=== PATIENT | female | born 1970 | race Caucasian/White ===

== ENCOUNTER 2016-08-12 13:00 | Emergency (ER) | payer OTHER ==
[~2016-08-12] VITALS: Ht 172.7 cm; Wt 72.7 kg
[~2016-08-12 13:00] MED LIST: CEFU500T PO; ONDA8TAB10 PO
[2016-08-12 13:04] VITALS: BP 185/103; PULSE 113; RESP 18; O2SAT 100
[2016-08-12 13:19] VITALS: BP 152/94; PULSE 106; RESP 19; O2SAT 99
--- NOTE | 2016-08-12 13:22 | ED.REPORT ---
HPI-General Illness Date of Service Aug 12, 2016 ED Provider: Dav Hill MD Pt is a 45 y/o female with a hx of hypertension who reports to the ED complaining of high blood pressure (215/138 this morning, recorded at home) and cold symptoms, onset 2 weeks. Pt has been experiencing extreme dizziness. Pt c/ o associated cough, congestion, fatigue, potential fever, SOB and headache. She has not had a flu shot this year. Pt denies blurred vision and chest pain. Pt has a friend who was recently ill and is also a health care provider. Nursing Notes Stated Complaint: HIGH BLOOD PRESSURE Chief Complaint: FLU/Cold Symptoms Nursing Notes Reviewed: Yes Allergies: Coded Allergies: cyclobenzaprine (Verified Allergy, Severe, 08/12/16) Sulfa (Sulfonamide Antibiotics) (Verified Allergy, Unknown, Rash, 08/12/16) Scheduled Cefuroxime Axetil (Ceftin) 500 Mg Tablet 500 MG PO BID Ciprofloxacin (Ciprofloxacin) 500 Mg Tablet 500 MG PO BID Ondansetron ODT (Ondansetron ODT) 8 Mg Tab.rapdis 8 MG PO QID Scheduled PRN Benzonatate (Tessalon Perle) 100 Mg Capsule 100 MG PO TID PRN PRN For Cough General Time Seen by MD: 13:14 Chief Complaint Dizziness, Flu-like illness Hx Obtained From: Patient Arrived By: Walk-in Onset Occurred: 2 days ago Symptom Duration: Since onset Severity: Current: No pain currently Severity: Maximum: No pain Recent Healthcare: No recent hospitalization Similar Sx Previous: No Past Medical History Past Medical History Ovarian Cysts Bipolar disorder Reports: Hypertension Reports: Urinary tract infection Past Surgical History cardiac ablation for SVT varicose veins Reports: Tubal ligation Smoking History Never Smoker Social History Other Social History: Good social support, Local resident Ambulatory Status Independent Review of Systems Full Review of Systems Constitutional: Reports: Chills, Fatigue, Fever Eyes: Denies: Blurred left, Blurred right Ears / Nose / Throat: Reports: Nasal congestion Respiratory: Reports: Non-productive cough, Shortness of breath Cardiovascular: Denies: Chest pain Neurologic: Reports: Headache Complete sys rev & neg: except as marked. Physical Exam Vital Signs Vital Signs Date Time Temp Pulse Resp B/P Pulse Ox O2 Delivery O2 Flow Rate FiO2 08/12/16 16:18 37.6 95 16 159/97 96 Room Air 08/12/16 15:44 37.6 95 16 159/97 96 Room Air 08/12/16 13:19 37.4 106 19 152/94 99 Room Air 08/12/16 13:04 36.8 113 18 185/103 100 Room Air Initial VS: Reviewed Neurologic: Alert, Oriented, Nonfocal Psychiatric: Mood/affect normal, Behavior normal, Normal thought content General/Constitutional: Awake, Alert, No acute distress Head / Eyes: Normocephalic, PERRL ENT: Atraumatic, Pharynx NL Mouth: Positive: Mucous membranes dry Neck: Supple, Full range of motion Respiratory / Chest: Atraumatic, Breath sounds NL, Breath sounds = bilat, No respiratory distress Cardiovascular: Heart sounds NL, No gallop, No murmurs, No rubs Heart Rate / Rhythm: Positive: Tachycardia Abdomen: Soft, Non-tender, No distention Flank / Spine / Paraspinal: Positive: Flank tender L, Flank tender R, Flank tender bilateral (diffuse tenderness ) Right Leg / Calf: Negative: Swelling present..., Tenderness present... Left Leg / Calf: Negative: Swelling present..., Tenderness present... Skin: Atraumatic, Color NL, No rash, Warm Interpretation & Diagnostics Interpretation & Diagnostics: Rapid Bedside Influenza Screen: NEGATIVE FOR INFLUENZA TYPE A AND B Bedside Urine Dip: Positive leukocytes, nitrites, and blood. Lab Results Interpretation Test 08/12/16 14:10 08/12/16 14:20 Urine Color Straw (YELLOW) Urine Appearance Hazy (CLEAR,HAZY) Urine pH 6.0 (5.0-8.0) Urine Specific Dinosaur 1.025 (1.003-1.035) Urine Protein Negativemg/dL (NEG,TRACE) Urine Glucose (UA) Negativemg/dL (NEGATIVE) Urine Ketones Negativemg/dL (NEGATIVE) Urine Occult Blood Small (NEGATIVE) Urine Nitrite Positive (NEGATIVE) Urine Bilirubin Negative (NEGATIVE) Urine Urobilinogen Normalmg/dL (NORMAL) Urine Leukocyte Esterase Trace (NEGATIVE) Urine RBC 0-2/hpf (0-2) Urine WBC 6-10/hpf (0-5) Urine Epithelial Cells Occasional/hpf (NONE-MOD) Urine Crystals None seen (NONE SEEN) Urine Bacteria Many/hpf (NONE-FEW) Urine Hyaline Casts None/lpf (NONE) Urine Granular Casts None seen (NONE SEEN) Urine Waxy Casts None seen (NONE SEEN) Urine Red Blood Cell Casts None seen (NONE SEEN) Urine White Blood Cell Casts None seen (NONE SEEN) Urine Mucus None seen (None Seen) Urine Trichomonas None seen (NONE SEEN) Urine Yeast None (NONE SEEN) Urinalysis Comment None Urine Culture Reflexed Indicated X-Ray Chest Interpretation Chest Xray Interpretation: IMPRESSION: Slight appearance of increased interstitial opacities within the bases. This could represent developing airspace disease. Recommend interval followup to document resolution, as wells reevaluation of right base nodule. Dictated by: Dayami Quiroz M.D. on 08/12/2016 at 15:19 Approved by: Dayami Quiroz M.D. on 08/12/2016 at 15:19 View: Portable Interpretation / Wet Read by: Interpret - Radiologist Re-Eval/Medical Decision Med Decision/Clinical Course Pt is a 45 y/o female with a hx of hypertension who reports to the ED complaining of high blood pressure (215/138 this morning, recorded at home) and cold symptoms, onset 2 weeks. Pt has been experiencing extreme dizziness. Pt c/ o associated cough, congestion, fatigue, potential fever, SOB and headache. She has not had a flu shot this year. Pt denies blurred vision and chest pain. Pt has a friend who was recently ill and is also a health care provider. Patient was initially borderline tachycardic with a heart rate in the low 100s though otherwise afebrile stable vital signs. Rapid Bedside Influenza Screen: NEGATIVE FOR INFLUENZA TYPE A AND B Bedside Urine Dip: Positive leukocytes, nitrites, and blood Formal urinalysis convincing for UTI, culture sent CXR: Obtained, reviewed and interpreted by myself shows no evidence of acute infiltrates, effusions or pneumothorax. Cardiac and mediastinal silhouette normal. No bony or soft tissue abnormalities. Overall presentation most consistent with flulike illness though the urinalysis raises concern for possible UTI/pyelonephritis. Patient is nontoxic appearing at this time and tolerating PO. No evidence of pneumonia or acute surgical intra-abdominal process. I do not feel that further imaging or laboratory studies are clinically indicated. After receiving IV fluids patient's tachycardia resolved. She was reassessed and reported feeling especially improved. She will be treated with a 7 day course of ciprofloxacin for presumed UTI. Follow up and return precautions were reviewed in detail and she was discharged in good condition. Source of Hx: Old records Time of Eval: 16:00 Patient Status: Condition improved Re-Evaluation/Progress Note: Discussed the results of the patient's labs, x-ray, and flu swab. Patient understands and agrees with the plan to be discharged home. Discharge instructions and follow-up discussed. All questions were addressed. Return to the ED warnings given. Counseled Regarding: Diagnosis, Lab results, Need for follow-up, When/why to return to ED Discharge & Departure Primary Impression: UTI (urinary tract infection) Urinary tract infection type: acute cystitis Hematuria presence: without hematuria Qualified Code: N30.00 - Acute cystitis without hematuria Additional Impressions: Flu-like symptoms Myalgia Disposition: Home Discharge Condition All VS Reviewed: Yes Condition: Stable Patient Instructions: Urinary Tract Infection in Women (ED) Additional Instructions: Thank you for seeking care at emergency room. It is difficult for us to make definitive diagnoses in the ED but we believe that you are experiencing a flulike illness. It appears the you also have a urinary tract infection. Our primary goal today in the ED was to evaluate you for any life-threatening conditions. Your evaluation was reassuring. You will be discharged with a prescription for antibiotics and cough medication , please take as directed. Make sure to drink plenty of fluids and you may take ibuprofen and Tylenol for pain. You should follow-up with your primary doctor in the next week. He should have your blood pressure rechecked at that time and further discuss starting blood pressure medications. You should return to the ED immediately if you develop stomach symptoms, blurry vision, headache, chest pain, fevers, vomiting, cough, shortness of breath, chest pain, lightheadedness, weakness or any other concerning signs or symptoms. Thank you for letting us partake in your care today. Referrals: [facility] Res[facility] Scribe Attestation Portion of this note were transcribed by Carli Mock and Aylin Hollingsworth. I, Dr. Hill, personally performed the history, physcial exam, and medical decision-making: I reviewed and confirmed the accuracy for the information in the transcribed note. Signed by: sravanthi Belle, 08/12/16 1600 Signed by: Sravanthi Ugalde, 08/12/20161810 Dav Hill MD Aug 12, 2016 13:22 AYLIN HOLLINGSWORTH Aug 12, 2016 14:01 Carli Mock Aug 12, 2016 14:08
[2016-08-12] MEDS ORDERED: 0.9% Sodium Chloride 1,000 ML IV ONE (13:55)
[2016-08-12] MEDS ORDERED: BENZ-12 PO (13:59)
--- NOTE | 2016-08-12 15:21 | DRSVH ---
PROCEDURE: X-RAY CHEST, TWO VIEWS ([id number]) INDICATIONS: cough TECHNIQUE: 2 views of the chest were acquired. COMPARISON: [facility], CT, ABD/PELVIS W/CON (PNL), 11/16/2006, 10:00. [facility], CT, CT ABD PELVIS W CON, 07/15/2015, 22:39. FINDINGS: Surgical changes and devices: None. Lungs and pleura: There is a slight appearance of increased coarsened interstitial opacities within t he lung bases bilaterally. In addition, there is a 9 mm somewhat discrete rounded nodular opacity in the right base. It is noted that no corresponding abnormality within this region is identified on the CT scan of 07/15/15. Mediastinum: Mediastinal contours are normal. Heart size is normal. Bones and chest wall: No suspicious bony abnormalities. Soft tissues appear unremarkable. IMPRESSION: Slight appearance of increased interstitial opacities within the bases. This could repres ent developing airspace disease. Recommend interval followup to document resolution, as wells reevalu ation of right base nodule. Dictated by: Dayami Quiroz M.D. on 08/12/2016 at 15:19 Approved by: Dayami Quiroz M.D. on 08/12/2016 at 15:19
[2016-08-12 15:37] LABS: APPEARANCE,URINE HAZY (CLEAR,HAZY); COLOR,URINE STRAW (YELLOW); OCCULT BLOOD,URINE SMALL (NEGATIVE)
[2016-08-12 15:38] LABS: UROBILINOGEN,URINE NORMAL (NORMAL)
[2016-08-12 15:44] VITALS: BP 159/97; PULSE 95; RESP 16; O2SAT 96
[2016-08-12] MEDS ORDERED: CIPR-198 PO (16:06)
[2016-08-12 16:18] VITALS: BP 159/97; PULSE 95; RESP 16; O2SAT 96
== END 2016-08-12 16:18 | disposition home or self-care (01) ==
LOC: SED 13:00
DX: N30.00 Acute cystitis without hematuria (principal); J11.1 Influenza due to unidentified influenza virus with other respiratory manifestations; B96.20 Unspecified Escherichia coli [E. coli] as the cause of diseases classified elsewhere; I10 Essential (primary) hypertension; Z88.2 Allergy status to sulfonamides; Z88.8 Allergy status to other drugs, medicaments and biological substances
CPT/HCPCS: 71020; 81000; 87077; 87086; 87088; 87186; 87804; 96360; 99285; J7030

== ENCOUNTER 2016-11-12 00:56 | Emergency (ER) | payer OTHER ==
[~2016-11-12] VITALS: Ht 172.7 cm; Wt 77.3 kg
[~2016-11-12 00:56] MED LIST changes: +BENZ-12 PO; +CIPR-198 PO
[2016-11-12 01:02] VITALS: BP 171/93; PULSE 89; RESP 16; O2SAT 98
--- NOTE | 2016-11-12 01:21 | ED.REPORT ---
HPI-Extremity Problem Lower Date of Service Nov 12, 2016 ED Provider: Carrie Griffith MD 45 y/o female presents to the ER complaining of left ankle injury, onset Wednesday when she got hit by the ball while she was playing baseball with her son. She complains of worsening pain and swelling over the past few days since the incident. The pain significantly worsened today. Patient denies, shortness of breath, cough and numbness or weakness in the left leg or ankle. The patient is able to bear weight on the left ankle, though with difficulty. Nursing Notes Stated Complaint: LEFT ANKLE INJURY Chief Complaint: Extremity Trauma Nursing Notes Reviewed: Yes Allergies: Coded Allergies: cyclobenzaprine (Verified Allergy, Severe, 11/12/16) Sulfa (Sulfonamide Antibiotics) (Verified Allergy, Unknown, Rash, 11/12/16) Scheduled Cefuroxime Axetil (Ceftin) 500 Mg Tablet 500 MG PO BID Cephalexin (Keflex) 500 Mg Capsule 500 MG PO QID Ciprofloxacin (Ciprofloxacin) 500 Mg Tablet 500 MG PO BID Ondansetron ODT (Ondansetron ODT) 8 Mg Tab.rapdis 8 MG PO QID Scheduled PRN Benzonatate (Tessalon Perle) 100 Mg Capsule 100 MG PO TID PRN PRN For Cough General Time Seen by MD: 01:13 Chief Complaint Ankle injury left Hx Obtained From: Patient Arrived By: Walk-in Onset Occurred: 4 days ago Symptom Duration: Since onset Caused by: Accidental Context: Occurred at: Sports injury Location: : Ankle left Quality: Painful Severity: Current: Severe Severity: Maximum: Severe Associated with: Reports: Swelling Pertinent Negative: Pt denies other symptoms Similar Sx Previous: No Past Medical History Past Medical History Ovarian Cysts Bipolar disorder Reports: Hypertension Reports: Urinary tract infection Past Surgical History cardiac ablation for SVT varicose veins Reports: Tubal ligation Smoking History Never Smoker Social History Other Social History: Good social support, Local resident Ambulatory Status Independent Review of Systems Constitutional: Reports: Chills Musculoskeletal: Reports: Joint pain (Left Ankle), Denies: Back pain, Extremity pain, Extremity swelling, Joint swelling, Lumbar pain, Neck pain, Thoracic pain Complete sys rev & neg: except as marked. Respiratory: Denies: Non-productive cough, Shortness of breath Physical Exam Initial Vital Signs Vital Signs (First) Date Time Temp Pulse Resp B/P Pulse Ox O2 Delivery O2 Flow Rate FiO2 4/6/17 01:02 36.4 89 16 171/93 98 Room Air Initial VS: Reviewed Head / Eyes: Atraumatic, Normocephalic, PERRL ENT: Mucous membranes moist, Conjunctiva normal, No scleral icterus Neck: Supple, Non-tender, Full range of motion Neurologic: Alert, Oriented, Nonfocal Left Leg / Calf: Positive: Erythema present, Swelling present... (Moderate), Tenderness present... (Moderate), Warmth present 2+ DP and PT pulses. Left Ankle: Positive: Erythema present, ROM reduced (Secondary to pain), Swelling present... (Moderate), Tender medial malleolus, Tenderness present... ( Moderate), Warmth present General/Constitutional: Awake, Alert, Well appearing, Well nourished Respiratory / Chest: Breath sounds NL, Breath sounds = bilat, No respiratory distress, No rales, No rhonchi, No wheezing Cardiovascular: Heart rate NL, Regular rhythm, Heart sounds NL, Peripheral circulation NL Interpretation & Diagnostics US LOWER EXTREMITIES Initial read by US wellfield technician No indication of DVT. Lab Results Interpretation Result Diagram: 11/12/16 0152 11/12/16 0152 Test 11/12/16 01:52 White Blood Count 8.6th/mm3 (3.8-10.1) Red Blood Count 4.56mil/mm3 (3.90-5.20) Hemoglobin 12.3g/dL (12.0-15.6) Hematocrit 38.2% (35.0-46.0) Mean Corpuscular Volume 83.8fL (81-100) Mean Corpuscular Hemoglobin 27.0pg (27.0-35.0) Mean Corpuscular Hemoglobin Concent 32.2% (32.0-37.0) Red Cell Distribution Width 13.9% (12.3-15.4) Platelet Count 310bil/L (150-400) Neutrophils (%) (Auto) 56.5% (40-74) Lymphocytes (%) (Auto) 22.1% (14-46) Monocytes (%) (Auto) 13.4% (4-12) Eosinophils (%) (Auto) 7.4% (0-5) Basophils (%) (Auto) 0.5% (0-3) Prothrombin Time 10.0sec (8.1-12.5) Prothromb Time International Ratio 0.94ratio Activated Partial Thromboplast Time 27.1sec (22.8-33.0) Sodium Level 138mEq/L (134-144) Potassium Level 4.3mEq/L (3.5-5.2) Chloride Level 99mEq/L (97-108) Carbon Dioxide Level 24mmol/L (18-29) Blood Urea Nitrogen 21mg/dL (6-24) Creatinine 0.60mg/dL (0.57-1.00) Estimat Glomerular Filtration Rate 154mL/min (>59) Glucose Level 101mg/dL (60-99) Calcium Level 9.3mg/dL (8.5-10.1) Total Bilirubin 0.3mg/dL (0.0-1.2) Aspartate Amino Transf (AST/SGOT) 24U/L (0-50) Alanine Aminotransferase (ALT/SGPT) 24U/L (0-32) Alkaline Phosphatase 90U/L (25-150) Total Protein 7.4g/dL (6.4-8.4) Albumin 3.7g/dL (3.4-5.0) Hold Alaniz Top Tube Received (Received) X-Ray Interpretation Xray Interpretation: Normal X-Ray Ordered: Ankle left Interpretation / Wet Read by: Wet read ED physician Re-Eval/Medical Decision Med Decision/Clinical Course 45-year-old female here with left ankle pain after trauma. Differential diagnosis includes but is not limited to fracture versus dislocation versus cellulitis versus DVT. He since ultrasound of her lower extremity was negative for DVT. X-ray wet read did not show any fracture or dislocation. Her exam is most concerning for cellulitis. CBC and CMP were unremarkable. I started her on Keflex in the emergency department and wrote her a prescription for same and advised her to follow up with her primary care physician. She is aware and amenable to discharge with strict return precautions. Re-Evaluation/Progress : Time of Eval: 02:53 Re-Evaluation/Progress Note: Discussed lab results and plan to discharge. Pt amenable to the plan. Return precautions given. All other questions were answered. Counseled Regarding: Diagnosis, Lab results, Need for follow-up, When/why to return to ED Discharge & Departure Impression: Primary Impression: Cellulitis Disposition: Home Discharge Condition All VS Reviewed: Yes Condition: Stable Patient Instructions: Cellulitis (DC) Additional Instructions: Take the prescribed Keflex as directed. It is important that you take the entire course of the antibiotic. Follow up with your primary care provider in the next few days. Return to the emergency room if you develop any worsening or concerning symptoms. Referrals: [facility] (PCP) [facility] Res[facility] Scribe Attestation Portion of this note were transcribed by Paco Gibbs and Milton Mijares. I, Dr. Griffith, personally performed the history,physical exam and medical decision- making; I reviewed and confirmed the accuracy of the information in transcribed note. Signed by Manuela Smith. 11/12/2016- 02:57 copies to: [facility] Carrie Griffith MD Nov 12, 2016 01:21 Paco Gibbs Nov 12, 2016 01:39 MILTON MIJARES Nov 12, 2016 02:06
[2016-11-12] MEDS ORDERED: 0.9% Sodium Chloride 1,000 ML IV ONE (01:35)
[2016-11-12 02:00] LABS: BASOPHILS % (AUTO) 0.5 % (0-3); EOSINOPHILS % (AUTO) 7.4 % (0-5); MONOCYTES % (AUTO) 13.4 % (4-12); Mean Corpuscular Volume 83.8 fL (81-100); NEUTROPHILS % (AUTO) 56.5 % (40-74); Platelet Count 310 bil/L (150-400)
[2016-11-12 02:17] LABS: INR 0.94 ratio
[2016-11-12] MEDS ORDERED: CEPH-512 PO (02:56)
[2016-11-12 03:26] VITALS: BP 190/110; PULSE 70; RESP 16; O2SAT 98
--- NOTE | 2016-11-18 09:10 | DRSVH ---
CORRECTED ORDERED FROM ON 11/18/16 PROCEDURE: X-RAY LEFT ANKLE, MINIMUM THREE VIEWS ([id number]) INDICATIONS: ankle pasin TECHNIQUE: 3 views of the ankle were acquired. COMPARISON: None. FINDINGS: Bones: No fractures or dislocations. Ankle mortise is normally aligned. No suspicious bony lesions . Soft tissues: No tibiotalar joint effusion. Achilles tendon appears normal. IMPRESSION: No acute fracture. No osseous lesion. If symptoms and/or clinical suspicion for patholog y persist, further assessment with repeat, or advanced imaging (e.g., CT, MRI, or bone scan) may be h elpful for further assessment. Dictated by: Yvonne Falcon M.D. on 11/12/2016 at 8:25 Approved by: Yvonne Falcon M.D. on 11/12/2016 at 8:25
== END 2016-11-12 03:26 | disposition home or self-care (01) ==
LOC: AIC 00:56
DX: L03.116 Cellulitis of left lower limb (principal); W21.03XA Struck by baseball, initial encounter; Y93.64 Activity, baseball; Y92.009 Unspecified place in unspecified non-institutional (private) residence as the place of occurrence of the external cause; Y99.8 Other external cause status; I10 Essential (primary) hypertension; Z88.2 Allergy status to sulfonamides; Z88.8 Allergy status to other drugs, medicaments and biological substances
CPT/HCPCS: 36415; 73610; 80053; 85025; 85610; 85730; 87040; 93970; 96360; 99285; J7030